=== PATIENT | male | born 1970 | race Caucasian/White ===

== ENCOUNTER 2020-04-19 08:06 | Outpatient (REF) | payer OTHER, SELFPAY ==
--- NOTE | 2020-04-19 08:10 | CT_ITS ---
EXAMINATION: CT CHEST WITHOUT CONTRAST CLINICAL INFORMATION: Pulmonary nodules. COMPARISON: CT chest 04/26/2019. TECHNIQUE: Multidetector volumetric CT imaging of the chest was done. Axial MIP volume rendering provided. Sagittal and coronal reformatted images were obtained. This CT examination was performed using dose optimization techniques as appropriate, variously including the following: *Automated exposure control *Adjustment of mA and/or kV according to patient size (this includes techniques or standardized protocols for targeted exams where dose is matched to indication/reason for exam; i.e. extremities or head) *Use of iterative reconstruction technique DLP: 177 mGy-cm FINDINGS: PAY PER CLICK STRATEGIST: Unremarkable. LUNGS: There are multiple subcentimeter calcified nodules throughout both lungs. The largest right fissural 1 cm nodule (image 310/6), and 5 mm and 6 mm fissural nodules left midlung (axial image 306/5), 3 mm nodule left lower lobe (axial image 473/5) are noted. All these nodules are stable. No new nodules seen. The lungs are expanded and otherwise clear. MEDIASTINUM: The thyroid lobes are symmetrical. The central trachea and the bronchi widely patent. The heart size and the great vessels are normal caliber. No abnormal mediastinal or hilar lymphadenopathy seen. There is no pericardial effusion. PLEURA: There is no pleural effusion. No pleural mass or thickening. AXILLA: Small shotty lymph nodes seen in the axilla. The chest wall is unremarkable. UPPER ABDOMEN: Visualized liver, spleen, pancreas and bilateral adrenal glands are unremarkable. There are no radiopaque gallstones. OSSEOUS STRUCTURES: No lytic or sclerotic process seen. There is mild ventral spondylosis throughout dorsal spine. CT/CT chest wo con IMPRESSION: Stable multiple pulmonary nodules. The largest pulmonary nodules in the right minor fissure and left major fissure are stable. No new nodules seen. No abnormal lymphadenopathy.
== END 2020-04-19 08:07 | disposition home or self-care (01) ==
LOC: HO.CT 08:06
PROVIDERS: Visit Provider Internal Medicine Pulmonary Disease
DX: R91.8 Other nonspecific abnormal finding of lung field (principal)
CPT/HCPCS: 71250

== ENCOUNTER → 2020-05-17 15:26 | Outpatient (BNVA) | payer OTHER, SELFPAY | PROVIDERS: PCP Internal Medicine; Visit Provider Internal Medicine Pulmonary Disease | DX: Z76.89 Persons encountering health services in other specified circumstances (principal) ==

== ENCOUNTER → 2021-05-14 15:24 | Outpatient (BNVA) | payer OTHER, SELFPAY | PROVIDERS: PCP Internal Medicine; Visit Provider Internal Medicine Pulmonary Disease ==

== ENCOUNTER 2021-05-23 16:30 | Outpatient (REF) | payer OTHER, SELFPAY ==
--- NOTE | ~2021-05-23 | CT_ITS ---
EXAMINATION: CT CHEST WITHOUT CONTRAST CLINICAL INFORMATION: Pulmonary nodules. COMPARISON: CT of the chest done on 04/19/2020 and 04/26/2019. TECHNIQUE: Multidetector volumetric CT imaging of the chest was done. Axial MIP volume rendering provided. Sagittal and coronal reformatted images were obtained. This CT examination was performed using dose optimization techniques as appropriate, variously including the following: *Automated exposure control *Adjustment of mA and/or kV according to patient size (this includes techniques or standardized protocols for targeted exams where dose is matched to indication/reason for exam; i.e. extremities or head) *Use of iterative reconstruction technique DLP: 315 mGy-cm FINDINGS: BARREL MAKER: Unremarkable. LUNGS: Interval development of 2 sub-5 mm subpleural noncalcified lung nodule seen within the left lower lobe (243 and 443:6). Previously documented Monica-fissural nodule seen around the right minor fissure in the mid part of the left major fissure and few other both calcified as well as noncalcified nodules within the left upper lobe appear unchanged since the baseline study dated 04/26/2019. MEDIASTINUM: No pathologically enlarged mediastinal or hilar lymphadenopathy, unchanged. PLEURA: There is no pleural effusion. No pleural mass or thickening. AXILLA: No lymphadenopathy. UPPER ABDOMEN: Unremarkable. OSSEOUS STRUCTURES: Unremarkable. CT/CT chest wo con IMPRESSION: Interval development of 2 sub-5 mm subpleural noncalcified lung nodule seen within the left lower lobe. No other significant interval change. Fleischner guidelines were followed.
== END 2021-05-23 16:31 | disposition home or self-care (01) ==
LOC: HO.CT 16:30
PROVIDERS: Visit Provider Internal Medicine Pulmonary Disease
DX: R91.8 Other nonspecific abnormal finding of lung field (principal)
CPT/HCPCS: 71250